=== PATIENT | female | born 1955 | race Caucasian/White ===

== ENCOUNTER 2017-06-15 07:25 | Outpatient (CLI) | payer SELFPAY | END 2017-06-15 07:26 | disposition EMS.NT | LOC: EMS 07:25 | PROVIDERS: ATTEND Surgery | DX: R10.9 Unspecified abdominal pain (principal); R11.10 Vomiting, unspecified ==

== ENCOUNTER 2023-01-30 10:32 | Outpatient (CLI) | payer MEDICARE, BC | END 2023-01-30 23:59 | disposition short-term general hospital (02) | LOC: EMS 10:32 | DX: R00.2 Palpitations (principal); R53.83 Other fatigue; I48.92 Unspecified atrial flutter | CPT/HCPCS: A0425; A0429 ==